=== PATIENT | male | born 1965 | race African-American/Black ===

== ENCOUNTER 2017-09-18 13:41 | Emergency (ER) | payer OTHER ==
[~2017-09-18] VITALS: Ht 175.3 cm; Wt 101.2 kg
[2017-09-18 14:01] VITALS: BP 138/85
[2017-09-18] MEDS ORDERED: NAPR-683 PO (14:08)
[2017-09-18] MEDS ORDERED: METH-38 PO (14:08)
--- NOTE | 2017-09-18 14:08 | PHYS DOC ---
Past History Past Medical History: No Pertinent History Past Surgical History: No Surgical History Smoking: Non-smoker Adult General Chief Complaint Chief Complaint: LOWER EXT PAIN HPI HPI Patient is a pleasant 52-year-old otherwise healthy male who was working out with weights in the gym attempting to squat 275 pounds when he had not worked out with this point along time when as he was squatting he felt a pop along the rectus femoris muscle and mediolateral rales having localized pain with localized swelling. Patient immediately stop exercising but has residual pain since. He shows small area of soft tissue swelling and bruising over the area where he was squatting. He denies any numbness and tingling, denies any groin pain, denies any hematuria, denies any weakness or pain within the joint of the hip or the knee. Patient's pain is only there when he stands from a sitting position. He says he was attempting to get in shape as he has a physical PT test in the next 8 weeks and was trying to get in shape. He had not taken any medications for his moderate pain pain does not radiate to the back or lower portion of the legs and there is no localized skin changes other than soft tissue swelling Review of Systems Review of Systems Constitutional: Denies fever or chills [] Eyes: Denies change in visual acuity, redness, or eye pain [] HENT: Denies nasal congestion or sore throat [] Respiratory: Denies cough or shortness of breath [] Cardiovascular: No additional information not addressed in HPI [] GI: Denies abdominal pain, nausea, vomiting, bloody stools or diarrhea [] : Denies dysuria or hematuria [] Musculoskeletal: Denies back pain positive only for left upper thigh pain Integument: Denies rash or skin lesions [] Neurologic: Denies headache, focal weakness or sensory changes [] Endocrine: Denies polyuria or polydipsia [] All other systems were reviewed and found to be within normal limits, except as documented in this note. Physical Exam Physical Exam Other vital signs on the chart at this time noted to be mildly hypertensive Constitutional: Well developed, well nourished, no acute distress, non-toxic appearance. [] Cardiovascular:Heart rate regular rhythm, no murmur [] Lungs & Thorax: Bilateral breath sounds clear to auscultation [] Skin: Warm, dry, no erythema, no rash. [] Extremities:, no cyanosis, no clubbing, ROM intact, no edema. Patient has localized tenderness to palpation and there is a small void in the soft tissue quality audit representative of a small tissue muscle tear there is some localized ecchymoses developing on the rectus femoris muscle on the medial aspect of that muscle belly and the vastus medialis[] Neurologic: Alert and oriented X 3, normal motor function, normal sensory function, no focal deficits noted. [] Psychologic: Affect normal, judgement normal, mood normal. [] EKG EKG [] Radiology/Procedures Radiology/Procedures [] Course & Med Decision Making Course & Med Decision Making Pertinent Labs and Imaging studies reviewed. (See chart for details) []Patient clearly has muscular skeletal injury muscle tear likely secondary to over usage in work stretching muscles with which we patient is no evidence of neurologic injury. Patient was given anti-inflammatories and muscle relaxants to help with symptoms. Patient encouraged not SO MUCH USE STRETCHING WARM COMPRESSES WARM HEAT AND LOCAL ice to help treat his symptoms. discharge: I've spoken with the patient and/or caregivers. I've explained the patient's condition, diagnosis and treatment plan based on information available to me at this time. I've answered the patient's and/or caregivers questions and addressed any concerns. The patient and/or caregivers have a good understanding the patient's diagnosis, condition and treatment plan as can be expected at this point. Vital signs have been stabilized. The patient's condition is stable for discharge from the emergency department. The patient will pursue further outpatient evaluation with her primary care provider or other designated consulting physician as outlined in the discharge instructions. Patient and/or caregivers are agreeable to this plan of care and follow-up instructions have been explained in detail. The patient and/or caregivers have received these instructions in written format and expressed understanding of these discharge instructions. The patient and her caregivers are aware that if any significant change in condition or worsening of symptoms should prompt him to immediately return to this of the closest emergency department. If an emergent department is not readily available I would encourage him to call 911. Artemio Disclaimer Artemio Disclaimer This electronic medical record was generated, in whole or in part, using a voice recognition dictation system. Departure Departure: Impression: Primary Impression: Tearing of muscle Additional Impression: Muscle strain Disposition: HOME, SELF-CARE Condition: STABLE Referrals: GETACHEW ZIEGLER DO (PCP) Patient Instructions: Muscle Strain, Muscle Tear Additional Instructions: discharge: I've spoken with the patient and/or caregivers. I've explained the patient's condition, diagnosis and treatment plan based on information available to me at this time. I've answered the patient's and/or caregivers questions and addressed any concerns. The patient and/or caregivers have a good understanding the patient's diagnosis, condition and treatment plan as can be expected at this point. Vital signs have been stabilized. The patient's condition is stable for discharge from the emergency department. The patient will pursue further outpatient evaluation with her primary care provider or other designated consulting physician as outlined in the discharge instructions. Patient and/or caregivers are agreeable to this plan of care and follow-up instructions have been explained in detail. The patient and/or caregivers have received these instructions in written format and expressed understanding of these discharge instructions. The patient and her caregivers are aware that if any significant change in condition or worsening of symptoms should prompt him to immediately return to this of the closest emergency department. If an emergent department is not readily available I would encourage him to call 911. Scripts Methocarbamol (ROBAXIN-750) 750 Mg Tablet 1 TAB PO BID, #20 TAB Prov: MARK GARCIA MD 09/18/17 Naproxen (NAPROSYN) 500 Mg Tablet 1 TAB PO BID, #20 TAB 1 Refill Prov: MARK GARCIA MD 09/18/17 Problem Qualifiers MARK GARCIA MD Sep 18, 2017 14:08
[2017-09-18] MEDS ORDERED: NAPROXEN 500 MG TABLET PO ONE (14:30)
== END 2017-09-18 14:35 | disposition home or self-care (01) ==
LOC: ER 13:41
DX: S76.912A Strain of unspecified muscles, fascia and tendons at thigh level, left thigh, initial encounter (principal); X50.9XXA Other and unspecified overexertion or strenuous movements or postures, initial encounter; Y93.89 Activity, other specified; Y99.8 Other external cause status; Y92.89 Other specified places as the place of occurrence of the external cause
CPT/HCPCS: 99283